=== PATIENT | female | born 1990 | race Caucasian/White ===

== ENCOUNTER 2024-01-14 17:15 | Emergency (ER) | payer OTHER ==
[~2024-01-14] VITALS: Ht 170.2 cm; Wt 101.5 kg
[2024-01-14] MEDS ORDERED: BACTRIM DS TAB1 EACH PO (20:15)
[2024-01-14] MEDS ORDERED: TRIMETHOPRIM/SULFAMETHOXAZOLE 1 EA HOME.PACK PO ONE (20:30)
[2024-01-14 22:40] VITALS: BP 113/64
== END 2024-01-14 20:48 | disposition home or self-care (01) ==
LOC: ED 17:15
DX: L02.416 Cutaneous abscess of left lower limb (principal); B95.62 Methicillin resistant Staphylococcus aureus infection as the cause of diseases classified elsewhere; Z59.00 Homelessness unspecified
CPT/HCPCS: 99282; A9270

== ENCOUNTER 2024-04-01 12:29 | Emergency (ER) | payer OTHER ==
[~2024-04-01] VITALS: Ht 170.2 cm; Wt 93.9 kg
[~2024-04-01 12:29] MED LIST: BACTRIM DS TAB1 EACH PO
[2024-04-01] MEDS ORDERED: METHADOSE40 MG PO (12:52)
[2024-04-01] MEDS ORDERED: DAPTOmycin 500 MG/10 ML VIAL IV ONE (14:45)
[2024-04-01 15:47] LABS: BASOPHILS 0.6 % (0-2); EOSINOPHILS 1.6 % (0-6); HEMATOCRIT 36.8 % (35.0-50.0); HEMOGLOBIN 12.2 g/dL (12.0-18.0); LYMPHOCYTES 27.4 % (24-44); MCH 26.5 (27-36); MCHC 33.1 g/dl (30-36); MCV 80.1 fl (81-99); MONOCYTES 6.4 % (0-12); PLATELET COUNT 636 K/uL (140-440); RDW 17.7 (10.5-15.0)
[2024-04-01 16:00] LABS: ALBUMIN 2.7 g/dL (3.4-5.0); ALBUMIN/GLOBULIN RATIO 0.44 (1.1-2.4); ANION GAP 9.8 (7-21); BILIRUBIN, TOTAL 0.6 ng/dL (0.2-1.0); CREATININE, SERUM 0.85 mg/dL (0.55-1.02); POTASSIUM 3.8 mmol/L (3.5-5.1); PROTEIN, TOTAL 8.9 g/dL (6.4-8.2)
[2024-04-01] MEDS ORDERED: BACTRIM DS TAB1 EACH PO (16:30)
[2024-04-01 17:02] VITALS: BP 105/66
== END 2024-04-01 17:03 | disposition home or self-care (01) ==
LOC: ED 12:29
PROVIDERS: Emergency Medicine
DX: L03.116 Cellulitis of left lower limb (principal); Z79.891 Long term (current) use of opiate analgesic
CPT/HCPCS: 36415; 76882; 80053; 84703; 85025; 96374; 99284-25; J0878

== ENCOUNTER 2025-01-07 15:32 | Emergency (ER) | payer OTHER ==
[~2025-01-07] VITALS: Ht 170.2 cm; Wt 96.5 kg
[~2025-01-07 15:32] MED LIST changes: +METHADOSE40 MG PO
[2025-01-07 18:04] LABS: BASOPHILS 0.4 % (0.1-1.2); EOSINOPHILS 1.8 % (0.7-5.8); LYMPHOCYTES 29.0 % (19.3-51.7); MCH 23.9 PG (25.6-32.2); MCHC 30.3 g/dL (32.2-35.5); MCV 78.9 fL (79.4-94.8); MONOCYTES 4.6 % (4.7-12.5); NEUTROPHILS 63.7 % (34.0-71.1); RBC 4.27 M/uL (3.93-5.22)
[2025-01-07 18:06] LABS: ALT (SGPT) 50.0 U/L (14-59); AST (SGOT) 26.0 U/L (15-37); GLOMERULAR FILTRATION RATE,EST 107.0 mL/min (>60); PROTEIN, TOTAL 7.8 g/dL (6.4-8.2); UREA NITROGEN 14.0 mg/dL (7-18)
[2025-01-07] MEDS ORDERED: LEVOFLOXACIN500 MG PO (19:23)
[2025-01-07] MEDS ORDERED: levoFLOXacin 500 MG TAB PO ONE (19:30)
[2025-01-07 19:33] VITALS: BP 117/59
== END 2025-01-07 20:10 | disposition home or self-care (01) ==
LOC: ED 15:32
PROVIDERS: Emergency Medicine
DX: L03.116 Cellulitis of left lower limb (principal)
CPT/HCPCS: 36415; 80053; 83605; 85025; 87040; 87077; 99283